=== PATIENT | female | born 1995 | race Hispanic/Latino ===

== ENCOUNTER 2021-03-13 22:34 | Emergency (ER) | payer OTHER ==
[~2021-03-13] VITALS: Ht 167.6 cm; Wt 104.3 kg
[2021-03-13] MEDS ORDERED: KETOROLAC TROMETHAMINE 30 MG/ML VIAL IV STA (22:51)
== END 2021-03-14 00:20 | disposition home or self-care (01) ==
LOC: FSED 22:40
DX: R07.89 Other chest pain (principal)
CPT/HCPCS: 71045; 80053; 82553; 84484; 85025; 85379; 99283

== ENCOUNTER 2024-08-12 21:45 | Emergency (ER) | payer OTHER ==
[~2024-08-12] VITALS: Ht 170.2 cm; Wt 90.7 kg
[2024-08-12 21:49] VITALS: PULSE 56; RESP 16; TEMP 97.5
[2024-08-12] MEDS ORDERED: MEDROL4 M2 PO (21:52)
[2024-08-12] MEDS ORDERED: VENTOLIN HFA18 GM INH (21:52)
[2024-08-12 22:14] VITALS: BP 125/95; O2SAT 98
== END 2024-08-12 22:13 | disposition home or self-care (01) ==
LOC: ER 21:50
DX: R06.02 Shortness of breath (principal); J45.901 Unspecified asthma with (acute) exacerbation; F41.9 Anxiety disorder, unspecified
CPT/HCPCS: 99283